=== PATIENT | female | born 1955 | race Caucasian/White ===

== ENCOUNTER 2023-10-12 15:40 | Emergency (ER) | payer OTHER, SELFPAY ==
[2023-10-12 15:43] VITALS: BP 180/0
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
== END 2023-10-12 17:45 | disposition home or self-care (01) ==
LOC: EMR 15:40
PROVIDERS: EMERGENCY PHYSICIAN Emergency Medicine
DX: M54.2 Cervicalgia (principal); V43.52XA Car driver injured in collision with other type car in traffic accident, initial encounter; Y92.410 Unspecified street and highway as the place of occurrence of the external cause; Z87.891 Personal history of nicotine dependence; Z96.659 Presence of unspecified artificial knee joint
CPT/HCPCS: 99283; 72050